=== PATIENT | male | born 1980 | race Caucasian/White ===

== ENCOUNTER → 2025-05-02 09:11 | Outpatient (REF) | payer BC, SELFPAY | LOC: HWRAD 09:11 | PROVIDERS: ATTENDING PHYSICIAN Surgery; FAMILY PHYSICIAN Family Medicine | DX: N23 Unspecified renal colic (principal); N50.812 Left testicular pain | CPT/HCPCS: 76770; 76870; 93976 ==

== ENCOUNTER 2025-09-06 06:20 | Day surgery (SDC) | payer BC, SELFPAY | END 2025-09-06 12:42 | disposition home or self-care (01) | LOC: GI 06:20 | PROVIDERS: ATTENDING PHYSICIAN Internal Medicine | DX: Z12.11 Encounter for screening for malignant neoplasm of colon (principal); K64.8 Other hemorrhoids | CPT/HCPCS: G0121 ==